=== PATIENT | female | born 1945 | race Caucasian/White ===

== ENCOUNTER → 2017-06-01 | Outpatient (CLI) | payer MEDICARE, BC ==
[~2017-06-01] MED LIST: ASPIRIN 325 MG TABLET ONE; CLOPIDOGREL BISULFATE 75 MG TABLET ONE; DIAZEPAM 10 MG TABLET. ONE; EPTIFIBATIDE BOLUS 2,000 MCG/ML 10ML VIAL. IV ONE; HEPARIN SODIUM 5,000 UNIT/ML VIAL for PCVC. ONE; HEPARIN for ARTERIAL LINE 1,500 ML ONE; IODIXANOL 270 MG/ML 100 ML VIAL. ONE; IOHEXOL 300 MG/ML 100ML VIAL. ONE; IOHEXOL 350 MG/ML 100 ML VIAL. ONE; IV NORMAL SALINE 1000ML BAG 1,000 ML ONE; IV NORMAL SALINE 500ML BAG 0 ML ONE; LIDOCAINE 1% Multi-Dose 20 ML VIAL. ONE; LIDOCAINE 1%/EPI 1:100,000 20 ML VIAL. ONE; MIDAZOLAM HCL/PF 2 MG/2 ML VIAL. ONE; ONDANSETRON PF 4 MG/2 ML VIAL. ONE; fentaNYL PF VIAL 100 MCG/2 ML VIAL ONE; hydrALAZINE 20 MG/ML VIAL. ONE
--- NOTE | 2017-06-01 14:56 | PCVCINTER ---
EXAM: 1 CERVICOEPHALIC ARCH AORTOGRAM 2 BILATERAL CAROTID ANGIOGRAPHY 3 RIGHT VERTEBROBASILAR ANGIOGRAPHY 4 BILATERAL RENAL ANGIOGRAPHY 5 LEFT SUBCLAVIAN ANGIOGRAPHY 6 LEFT SUBCLAVIAN ARTERY STENT PLACEMENT 7 BILATERAL LOWER EXTREMITY ANGIOGRAPHY INDICATION: Carotid occlusive disease. Left subclavian steal. Hypertension. Renal atherosclerosis. Left arm pain and numbness. Lower extremity pain with walking. Peripheral arterial disease. PROCEDURE: Procedure and risks of the procedures listed above were discussed with the patient and consent obtained. Risks including but not limited to bleeding, infection, stroke, vascular injury, neurologic injury, embolization, allergic reactions, and contrast-induced nephropathy requiring dialysis were discussed as appropriate and consent obtained. Patient was placed on the angiography table. IV conscious sedation was utilized with appropriate monitoring from 10:45 AM through 12:15 PM. The right groin was prepped and draped in the normal sterile fashion. Ultrasound was used to interrogate the right groin and demonstrate the right common femoral artery. An ultrasound image was saved. Under ultrasound guidance a 21 gauge needle was used to gain access into the right common femoral artery and a 6F vascular sheath was placed. Catheter was placed into the ascending aorta and cervicocephalic aortic arch angiogram performed. Catheter was placed into the suprarenal abdominal aorta and abdominal aortic angiogram performed. Catheter was placed above the aortic bifurcation and both oblique views of the pelvis were obtained. Catheter was placed into the right common carotid artery and right common carotid angiogram performed. Catheter was placed into the left common carotid artery and left common carotid angiogram performed. Catheter was placed into the right subclavian artery and right vertebro-basilar angiogram performed. Catheter was placed into the left subclavian artery left subclavian antrum was obtained. Patient was given 4000 units of heparin. A 10 x 29 Palmaz Sera stent was placed across the area of stenosis in the proximal left subclavian artery with dilatation up to 10.0 mm. Catheter was placed into the right renal artery and right renal angiogram performed. Catheter was placed into the left renal artery and left renal angiogram performed. Catheter was placed to the level of the left external iliac artery left leg runoff angiogram obtained. Catheter was placed to the level of the right external iliac artery and right leg runoff angiogram was obtained. Dr. Soto joined the procedure and he then performed coronary angiography. Please see his separate dictation for full details. No immediate complications. FINDINGS: Cervicocephalic arch aortogram: The innominate artery and origin of the left common carotid artery show adequate patency without significant stenosis. High-grade stenosis proximal left subclavian artery. The dominant vertebral artery is the right vertebral artery. Right common carotid angiogram: This injection fills the right anterior and middle cerebral distributions which are otherwise unremarkable. Minimal changes of fibromuscular dysplasia proximal internal carotid artery do not cause significant stenosis. The common and external carotid arteries are patent. Left common carotid angiogram: This injection fills the left anterior and middle cerebral distributions which are unremarkable. Presumed changes of fibromuscular dysplasia proximal internal carotid artery do not cause flow-limiting stenosis. The common and external carotid arteries are patent. The cavernous carotid artery is patent. Right vertebrobasilar angiogram: The right vertebral artery is widely patent. The basilar artery is patent. Both posterior cerebral arteries show good patency. Reversed flow in the upper left vertebral artery is noted. Left subclavian angiogram: Irregular 95% stenosis proximal subclavian artery. The mid and distal subclavian artery show good patency. The origin of the left vertebral artery is patent. Aortogram: There is one right and one left renal artery. Moderate plaque infrarenal abdominal aorta without high-grade stenosis. Pelvis: Mild plaque in the right and left common iliac arteries without significant stenosis. Both external iliac arteries show good patency. The right and left common femoral and profunda femoral arteries are patent. Right renal angiogram: Proximal stent right renal artery showing good patency. Moderate changes of fibromuscular dysplasia mid to distal main renal artery not felt be flow-limiting. Left renal angiogram: Previous stent proximal renal artery showing good patency. Right leg: The superficial femoral and popliteal arteries are widely patent. Widely patent three-vessel runoff into the foot. Left leg: The superficial femoral and popliteal arteries are widely patent. Widely patent three-vessel runoff into the foot. Left subclavian artery: Following procedure as above vessel is widely patent without significant stenosis. IMPRESSION: 95% stenosis proximal left subclavian artery was treated with stent placement with good patency restored. 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 Previous right and left renal artery stents maintaining good patency. No infrainguinal arterial stenosis identified. LOC:[id number]
--- NOTE | 2017-06-01 16:48 | PCVCINTER ---
APPROVED REPORT Patient Details Patient Status: Out-Patient Room #: 2 The patient is a 72 year-old Female Event Personnel Karan Ying RT(R), Erick Franz RN, Lianna Cyndee RT(R)() Risk Factors Arterial HypertensionDysplipidemia (Type: 1), Cerebrovascular DiseasePeripheral Vascular Disease, Chronic Lung DiseaseHypercholesterolemia, Last Creatanine 0.9 Previous Procedures/Diagnoses Previous Femoral Procedure, PVD, COPD, Hypertension Procedure Narrative The patient was brought electively to the Cardiac Catheterization Laboratory and was prepped and draped in a sterile manner. The right coronary system was accessed and visualized with a JR4 catheter. The left coronary system was accessed and visualized with a JL5 catheter. The left ventricle was accessed and visualized with a ANGLED PIG catheter. Left ventriculogram was performed in VIZCARRA projection. Closure device was deployed with a 7 Fr Mynx. The patient tolerated the procedure well and there were no complications associated with the procedure. There was no hematoma. Coronary Angiography The patient's coronary anatomy is right dominant. Diagnostic Cath Left MainAngiographically normal LADThe left anterior descending was a large vessel that extended to the infero-apex. Angiographically normal Diagonal 1Relatively small and angiographically normal Diagonal 2Small caliber and angiographically normal Diagonal 3Mid vessel arising third diagonal branch also small and angiographically normal CircumflexModerately large and normal OM1The circumflex was comprised predominantly of a single large marginal branch that was angiographically normal Right CoronaryModerate in size and angiographically normal Left Ventriculography The left ventricle is normal in size with normal contractility. The left ventricular ejection fraction is estimated to be 60-65%. Left ventricular wall motion abnormalities are not present. There is no mitral insufficiency. Hemodynamics The aortic pressure is 137/88 mmHg with a mean of 106 mmHg. The left ventricular pressure is 157/8 mmHg with a mean of 9 mmHg. There was no gradient across the aortic valve upon pullback. Conclusion 1. Normal global and regional left ventricular systolic function. EF 65% 2. Normal coronary vasculature. This was a right coronary dominant circulation.
== END | disposition home or self-care (01) ==
LOC: PCVCINTER 08:31
PROVIDERS: ATTEND Nuclear Medicine Nuclear Cardiology
DX: G45.8 Other transient cerebral ischemic attacks and related syndromes (principal); I70.1 Atherosclerosis of renal artery; I73.9 Peripheral vascular disease, unspecified; I10 Essential (primary) hypertension; E78.5 Hyperlipidemia, unspecified; E78.00 Pure hypercholesterolemia, unspecified; J44.9 Chronic obstructive pulmonary disease, unspecified
CPT/HCPCS: 36215; 36223; 36225; 36252; 37236; 75710; 75716; 76937; 93458; 99152; 99153; C1725; C1751; C1760; C1769; C1894; J0690; J1644; J2250; J2405; J3010; J7030; Q9967; J0360; J1327; J3490; J7040

== ENCOUNTER → 2017-10-08 | Outpatient (CLI) | payer MEDICARE, BC | END | disposition home or self-care (01) | LOC: PCVCIMAG 12:40 | DX: I73.9 Peripheral vascular disease, unspecified (principal); I77.1 Stricture of artery; I70.1 Atherosclerosis of renal artery; I77.9 Disorder of arteries and arterioles, unspecified; J44.9 Chronic obstructive pulmonary disease, unspecified; Z87.891 Personal history of nicotine dependence; Z79.899 Other long term (current) drug therapy | CPT/HCPCS: 93931; G0463 ==